=== PATIENT | male | born 2000 | race Caucasian/White ===

== ENCOUNTER 2021-06-18 19:17 | Emergency (ER) | payer OTHER ==
[~2021-06-18] VITALS: Ht 177.8 cm; Wt 79.5 kg
[2021-06-18 19:27] VITALS: TEMP 97.4
[2021-06-18] MEDS ORDERED: FLEXERIL 1010 MG/TAB PO (20:26)
[2021-06-18] MEDS ORDERED: MOBIC 7.5MG7.5 MG PO (20:27)
[2021-06-18 20:30] VITALS: BP 118/80; PULSE 51
== END 2021-06-18 20:38 | disposition home or self-care (01) ==
LOC: COL.ER 19:17
DX: M54.50 Low back pain, unspecified (principal)
CPT/HCPCS: J1885; J2360

== ENCOUNTER 2022-01-22 10:49 | Emergency (ER) | payer OTHER ==
[~2022-01-22] VITALS: Ht 177.8 cm; Wt 77.3 kg
[~2022-01-22 10:49] MED LIST: FLEXERIL 1010 MG/TAB PO; MOBIC 7.5MG7.5 MG PO
[2022-01-22 10:56] VITALS: TEMP 99.2
[2022-01-22 11:55] VITALS: BP 118/71; PULSE 81
== END 2022-01-22 12:06 | disposition home or self-care (01) ==
LOC: COL.ER 10:49
DX: B34.9 Viral infection, unspecified (principal); R51.9 Headache, unspecified; R07.9 Chest pain, unspecified; R09.81 Nasal congestion; M79.10 Myalgia, unspecified site; Z20.822 Contact with and (suspected) exposure to COVID-19